=== PATIENT | female | born 1985 | race Asian ===

== ENCOUNTER 2019-02-06 08:30 | Inpatient (IN) | payer OTHER ==
[~2019-02-06] VITALS: Ht 152.4 cm; Wt 3.2 kg
[2019-03-10] MEDS ORDERED: PRENATAL TABLE1 EACH PO (07:06)
== END 2019-03-14 12:36 | disposition home or self-care (01) | DRG 788 ==
LOC: OB/GYN 03-06 08:30 → LDR 03-10 05:42 → O/R 03-11 13:47 → OB/GYN 03-11 15:44
PROVIDERS: ADMIT Obstetrics & Gynecology
PROC: 10D00Z1 Extraction of Products of Conception, Low, Open Approach (ICD-10-PCS; principal; 2019-03-10)
PROC: 3E0P7VZ Introduction of Hormone into Female Reproductive, Via Natural or Artificial Opening (ICD-10-PCS; 2019-03-10)
PROC: 3E033VJ Introduction of Other Hormone into Peripheral Vein, Percutaneous Approach (ICD-10-PCS; 2019-03-10)
PROC: 4A1HXCZ Monitoring of Products of Conception, Cardiac Rate, External Approach (ICD-10-PCS; 2019-03-10)
DX: O61.0 Failed medical induction of labor (principal); Z3A.40 40 weeks gestation of pregnancy; Z37.0 Single live birth